=== PATIENT | female | born 1970 | race African-American/Black ===

== ENCOUNTER 2021-10-15 17:23 | Inpatient (IN) | payer OTHER ==
[2021-10-15] MEDS ORDERED: LABETALOL HCL 5 MG/1 ML (200MG/40ML VIAL) IVPB ONE ×2 (17:57→17:59)
[2021-10-15] MEDS ORDERED: LABETALOL HCL 5 MG/1 ML (100MG/20 ML VIAL) IVPUSH ONE ×2 (17:58→17:59)
[2021-10-15 19:02] LABS: BASO % 0.8 % (0-2.0); EOS % 0.7 % (0-4.5); HEMATOCRIT 45.9 % (32.4-45.2); HEMOGLOBIN 15.3 GM/dL (10.7-15.3); LYMPH % 32.3 % (8-40); MCH 30.1 pg (25.7-33.7); MCHC 33.3 g/dl (32.0-36.0); MEAN CELL VOLUME 90.5 fl (80-96); MEAN PLT VOLUME 9.5 fl (7.5-11.1); MONO % 8.5 % (3.8-10.2); NEUT % 57.7 % (42.8-82.8); PLATELET COUNT 244 10^3/uL (134-434); RBC 5.07 M/mm3 (3.60-5.2); RDW 15.1 % (11.6-15.6); WHITE BLOOD COUNT 5.1 K/mm3 (4.0-10.0)
[2021-10-15 19:11] LABS: INR 1.03 (0.83-1.09); PROTHROMBIN TIME (PATIENT) 11.9 SEC (9.7-13.0)
[2021-10-15 19:11] LABS: EPI CELLS 6 /uL (0-25.1); HYALINE CASTS 0 /uL (0-3.1); URINE APPEARANCE CLEAR; URINE BACTERIA 71 /uL (0-1359); URINE BILIRUBIN NEGATIVE (NEGATIVE); URINE COLOR YELLOW; URINE GLUCOSE (UA) NEGATIVE (NEGATIVE); URINE KETONE NEGATIVE (NEGATIVE); URINE LEUK ESTERASE NEGATIVE (NEGATIVE); URINE NITRITE NEGATIVE (NEGATIVE); URINE PROTEIN 1+ (NEGATIVE); URINE RBC 2 /uL (0-23.9); URINE UROBILINOGEN 0.2 mg/dL (0.2-1.0); URINE WBC 3 /uL (0-25.8)
[2021-10-15 19:13] LABS: ACTIVATED PTT 32.8 SECONDS (25.2-36.5)
[2021-10-15 19:20] LABS: ALBUMIN 4.5 g/dl (3.4-5.0); BLOOD UREA NITROGEN 9.9 mg/dL (7-18); CALCIUM 12.1 mg/dL (8.5-10.1); MAGNESIUM 2.7 mg/dL (1.8-2.4)
[2021-10-15 19:23] LABS: CREATININE 0.7 mg/dL (0.55-1.3)
[2021-10-15 19:25] LABS: TOT PROT 9.2 g/dl (6.4-8.2)
[2021-10-15 19:29] LABS: BILIRUBIN,TOTAL 0.9 mg/dL (0.2-1); N-TERMINAL BNP 103.8 pg/ml (5-125)
[2021-10-15] MEDS ORDERED: LISINOPRIL 10 MG TABLET PO ONE (20:04)
[2021-10-15] MEDS ORDERED: LISINOPRIL 5 MG TABLET ONE (21:41)
[2021-10-16 07:17] LABS: EOS % 0.6 % (0-4.5); HEMATOCRIT 41.4 % (32.4-45.2); HEMOGLOBIN 14.1 GM/dL (10.7-15.3); LYMPH % 19.1 % (8-40); MCH 30.6 pg (25.7-33.7); MCHC 34.1 g/dl (32.0-36.0); MEAN CELL VOLUME 89.7 fl (80-96); MEAN PLT VOLUME 9.2 fl (7.5-11.1); MONO % 8.3 % (3.8-10.2); PLATELET COUNT 216 10^3/uL (134-434); RBC 4.61 M/mm3 (3.60-5.2); RDW 15.1 % (11.6-15.6); WHITE BLOOD COUNT 5.7 K/mm3 (4.0-10.0)
[2021-10-16 07:45] LABS: CALCIUM 11.8 mg/dL (8.5-10.1)
[2021-10-16 07:46] LABS: ALBUMIN 3.8 g/dl (3.4-5.0); BLOOD UREA NITROGEN 9.6 mg/dL (7-18)
[2021-10-16 07:47] LABS: BILIRUBIN,TOTAL 0.9 mg/dL (0.2-1); TOT PROT 7.8 g/dl (6.4-8.2)
[2021-10-16 07:49] LABS: CREATININE 0.8 mg/dL (0.55-1.3)
[2021-10-16] MEDS ORDERED: LISINOPRIL 10 MG TABLET ONE (08:20)
[2021-10-16] MEDS ORDERED: LISINOPRIL 10 MG TABLET PO SCH (10:00)
[2021-10-16] MEDS: CHLORTHALIDONE 25 MG TABLET PO SCH (11:58)
[2021-10-16 12:09] LABS: SARS-CoV-2 NAA Not Detected (Not Detected)
[2021-10-16] MEDS ORDERED: hydrALAZINE HCL 10 MG TABLET PO ONE (19:00)
[2021-10-16 20:55] VITALS: BMI 23.3
[2021-10-16] MEDS ORDERED: LISINOPRIL 10 MG TABLET PO ONE (23:28)
[2021-10-17] MEDS: CHLORTHALIDONE 25 MG TABLET PO SCH (09:24)
[2021-10-17] MEDS: LISINOPRIL 10 MG TABLET PO SCH (09:25)
[2021-10-17] MEDS: amLODIPine BESYLATE 5 MG TABLET (FP) PO SCH (19:04)
[2021-10-17] MEDS: hydrALAZINE HCL 10 MG TABLET PO SCH (22:56)
[2021-10-18] MEDS: hydrALAZINE HCL 10 MG TABLET PO SCH ×3 (05:38→21:37)
[2021-10-18 07:47] LABS: BASO % 1.1 % (0-2.0); EOS % 2.9 % (0-4.5); HEMATOCRIT 43.8 % (32.4-45.2); HEMOGLOBIN 14.6 GM/dL (10.7-15.3); LYMPH % 43.9 % (8-40); MCH 30.1 pg (25.7-33.7); MCHC 33.3 g/dl (32.0-36.0); MEAN CELL VOLUME 90.5 fl (80-96); MEAN PLT VOLUME 9.8 fl (7.5-11.1); MONO % 11.9 % (3.8-10.2); NEUT % 40.2 % (42.8-82.8); PLATELET COUNT 227 10^3/uL (134-434); RBC 4.84 M/mm3 (3.60-5.2)
[2021-10-18 07:49] LABS: CALCIUM 11.8 mg/dL (8.5-10.1)
[2021-10-18 07:50] LABS: ALBUMIN 3.6 g/dl (3.4-5.0)
[2021-10-18 07:53] LABS: CREATININE 0.8 mg/dL (0.55-1.3)
[2021-10-18 07:54] LABS: BILIRUBIN,TOTAL 1.3 mg/dL (0.2-1); TOT PROT 7.2 g/dl (6.4-8.2)
[2021-10-18] MEDS: CHLORTHALIDONE 25 MG TABLET PO SCH (09:08)
[2021-10-18] MEDS: LISINOPRIL 10 MG TABLET PO SCH (09:08)
[2021-10-18] MEDS: amLODIPine BESYLATE 5 MG TABLET (FP) PO SCH (09:09)
[2021-10-18] MEDS ORDERED: hydrALAZINE HCL 10 MG TABLET PO SCH (10:00)
[2021-10-18] MEDS ORDERED: amLODIPine BESYLATE 2.5 MG TABLET (FP) PO ONE ×2 (22:00→23:30)
[2021-10-19] MEDS: hydrALAZINE HCL 10 MG TABLET PO SCH ×3 (05:31→21:06)
[2021-10-19] MEDS: QUINAPRIL HCL 40 MG TABLET PO SCH (11:51)
[2021-10-19] MEDS: CHLORTHALIDONE 25 MG TABLET PO SCH (11:52)
[2021-10-19] MEDS: amLODIPine BESYLATE 10 MG TABLET (FP) PO SCH (11:52)
[2021-10-19 17:11] LABS: URINE APPEARANCE CLEAR; URINE BILIRUBIN NEGATIVE (NEGATIVE); URINE COLOR YELLOW; URINE GLUCOSE (UA) NEGATIVE (NEGATIVE); URINE KETONE NEGATIVE (NEGATIVE); URINE LEUK ESTERASE NEGATIVE (NEGATIVE); URINE NITRITE NEGATIVE (NEGATIVE); URINE PROTEIN NEGATIVE (NEGATIVE); URINE UROBILINOGEN 0.2 mg/dL (0.2-1.0)
[2021-10-20] MEDS: hydrALAZINE HCL 10 MG TABLET PO SCH ×3 (06:06→20:53)
[2021-10-20] MEDS: QUINAPRIL HCL 40 MG TABLET PO SCH (09:42)
[2021-10-20] MEDS: CHLORTHALIDONE 25 MG TABLET PO SCH (09:43)
[2021-10-20] MEDS: amLODIPine BESYLATE 10 MG TABLET (FP) PO SCH (09:43)
[2021-10-21] MEDS: hydrALAZINE HCL 10 MG TABLET PO SCH (06:44)
[2021-10-21 08:47] LABS: CALCIUM 12.2 mg/dL (8.5-10.1)
[2021-10-21 08:49] LABS: ALBUMIN 4.1 g/dl (3.4-5.0); BLOOD UREA NITROGEN 24.1 mg/dL (7-18)
[2021-10-21 08:51] LABS: CREATININE 0.9 mg/dL (0.55-1.3)
[2021-10-21 08:52] LABS: BILIRUBIN,TOTAL 0.9 mg/dL (0.2-1); TOT PROT 8.3 g/dl (6.4-8.2)
[2021-10-21] MEDS: amLODIPine BESYLATE 10 MG TABLET (FP) PO SCH (09:37)
[2021-10-21] MEDS: QUINAPRIL HCL 40 MG TABLET PO SCH (09:38)
[2021-10-21] MEDS: CHLORTHALIDONE 25 MG TABLET PO SCH (09:38)
[2021-10-21] MEDS: hydrALAZINE HCL 25 MG TABLET (FP) PO SCH ×2 (14:03→21:19)
[2021-10-21] MEDS ORDERED: DEXTROSE 5%-1/3 NS - 500 ML IV SCH (23:45)
[2021-10-22] MEDS: hydrALAZINE HCL 25 MG TABLET (FP) PO SCH ×3 (06:29→21:02)
[2021-10-22 07:07] LABS: BASO % 2.1 % (0-2.0); HEMATOCRIT 45.9 % (32.4-45.2); HEMOGLOBIN 15.3 GM/dL (10.7-15.3); LYMPH % 58.1 % (8-40); MCH 30.2 pg (25.7-33.7); MCHC 33.2 g/dl (32.0-36.0); MEAN CELL VOLUME 90.9 fl (80-96); MEAN PLT VOLUME 9.7 fl (7.5-11.1); MONO % 10.2 % (3.8-10.2); NEUT % 26.6 % (42.8-82.8); PLATELET COUNT 278 10^3/uL (134-434); RBC 5.05 M/mm3 (3.60-5.2); RDW 14.7 % (11.6-15.6); WHITE BLOOD COUNT 4.4 K/mm3 (4.0-10.0)
[2021-10-22 07:27] LABS: BLOOD UREA NITROGEN 22.7 mg/dL (7-18); CALCIUM 11.7 mg/dL (8.5-10.1)
[2021-10-22 07:28] LABS: ALBUMIN 3.8 g/dl (3.4-5.0)
[2021-10-22 07:31] LABS: CREATININE 0.9 mg/dL (0.55-1.3)
[2021-10-22 07:32] LABS: BILIRUBIN,TOTAL 0.8 mg/dL (0.2-1)
[2021-10-22] MEDS: amLODIPine BESYLATE 10 MG TABLET (FP) PO SCH (09:14)
[2021-10-22] MEDS: CHLORTHALIDONE 25 MG TABLET PO SCH (09:14)
[2021-10-22] MEDS: QUINAPRIL HCL 40 MG TABLET PO SCH (09:14)
[2021-10-22] MEDS: ISOSORBIDE MONONITRATE 30 MG TAB.SR.24H (FP) PO SCH (14:09)
[2021-10-23] MEDS: hydrALAZINE HCL 25 MG TABLET (FP) PO SCH ×2 (06:45→13:57)
[2021-10-23 07:03] LABS: BASO % 1.6 % (0-2.0); EOS % 2.4 % (0-4.5); HEMATOCRIT 41.1 % (32.4-45.2); HEMOGLOBIN 14.1 GM/dL (10.7-15.3); LYMPH % 43.5 % (8-40); MCH 30.6 pg (25.7-33.7); MCHC 34.4 g/dl (32.0-36.0); MEAN CELL VOLUME 89.1 fl (80-96); MEAN PLT VOLUME 9.7 fl (7.5-11.1); MONO % 11.5 % (3.8-10.2); PLATELET COUNT 248 10^3/uL (134-434); RBC 4.62 M/mm3 (3.60-5.2); RDW 14.6 % (11.6-15.6); WHITE BLOOD COUNT 4.8 K/mm3 (4.0-10.0)
[2021-10-23 07:13] LABS: ALBUMIN 3.8 g/dl (3.4-5.0); BLOOD UREA NITROGEN 27.3 mg/dL (7-18); CALCIUM 11.6 mg/dL (8.5-10.1)
[2021-10-23 07:16] LABS: CREATININE 0.9 mg/dL (0.55-1.3)
[2021-10-23 07:18] LABS: BILIRUBIN,TOTAL 0.6 mg/dL (0.2-1); TOT PROT 7.6 g/dl (6.4-8.2)
[2021-10-23] MEDS: ISOSORBIDE MONONITRATE 30 MG TAB.SR.24H (FP) PO SCH (09:11)
[2021-10-23] MEDS: amLODIPine BESYLATE 10 MG TABLET (FP) PO SCH (09:11)
[2021-10-23] MEDS: CHLORTHALIDONE 25 MG TABLET PO SCH (09:11)
[2021-10-23] MEDS: QUINAPRIL HCL 40 MG TABLET PO SCH (09:11)
[2021-10-23 14:00] VITALS: BP 142/90; PULSE 72; TEMP 97.5
== END 2021-10-23 18:06 | disposition home or self-care (01) | DRG 424 ==
LOC: JER 17:23 → JERBED 20:07 → J4W 10-16 18:29
PROVIDERS: ADMIT Internal Medicine; ATTEND Internal Medicine
DX: E21.3 Hyperparathyroidism, unspecified (principal); I10 Essential (primary) hypertension; I16.1 Hypertensive emergency; G43.909 Migraine, unspecified, not intractable, without status migrainosus; F41.9 Anxiety disorder, unspecified; F41.8 Other specified anxiety disorders; K40.90 Unilateral inguinal hernia, without obstruction or gangrene, not specified as recurrent
CPT/HCPCS: 36415; 70450-TC; 71045-TC-FY; 76775-TC; 80053; 80061; 81003; 82088; 82310; 82340; 82962; 83036; 83735; 83880; 83970; 84155; 84165; 84244; 84439; 84443; 84484; 85025; 85610; 85730; 86850; 86900; 86901; 87086; 93005; 93010; 93306-TC; 99285-25; C9803-CS; U0003; U0005